=== PATIENT | male | born 1945 | race Two or more races ===

== ENCOUNTER 2024-09-26 10:55 | Day surgery (SDC) | payer MEDICARE, MEDICAID, SELFPAY ==
--- NOTE | 2024-09-26 10:31 | EKG_ITS ---
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
[2024-09-26 11:54] VITALS: BP 168/73; PULSE 54; RESP 20; TEMP 36.2; O2SAT 100
[2024-09-26 12:31] LABS: Alanine Aminotransferase 17 U/L (10-49); Albumin, Serum 4.6 gm/dL (3.4-4.8); Albumin/Globulin Ratio 1.8 (1.2-2.2); Alkaline Phosphatase 113 U/L (46-116); Anion Gap 9 (7-16); Aspartate Amino Transferase 31 U/L (0-34); BUN/Creatinine Ratio 16 Ratio (12-20); Blood Urea Nitrogen 16 mg/dL (9-23); Calcium 9.7 mg/dL (8.3-10.6); Calcium (Corrected) 9.7 mg/dL (8.5-10.1); Carbon Dioxide 25.5 mMol/L (20.0-31.0); Chloride 102 mMol/L (98-107); Estimated Creatinine Clearance 55.2 mL/min (>60); Globulin 2.5 gm/dL (2.3-3.5); Glucose 125 mg/dL (74-106); Osmolality,Calculated 274 (275-295); Potassium 4.6 mMol/L (3.4-5.1); Sodium 136 mMol/L (136-145); Total Protein 7.1 gm/dL (5.7-8.2); eGFR > 60 See Note
[2024-09-26] MEDS: RINGERS LACTATED 500 ML 500 ML 20 ML IV (12:50)
[2024-09-26 13:50] VITALS: BP 103/45; PULSE 53; PULSE 57; RESP 20; TEMP 36.4; O2SAT 99
--- NOTE | 2024-09-26 13:50 | SUR.PHASEII ---
1350: Pt. AAOx4, vitals stable, breathing unlabored, no complaint of pain or nausea, no dressing in place, no active bleed noted, report received from Qamar BROWN and Marybeth SIEGEL.
[2024-09-26 13:55] VITALS: BP 95/55; PULSE 59; RESP 20; TEMP 36.5; O2SAT 100
[2024-09-26 14:00] VITALS: BP 108/47; PULSE 55; RESP 16; TEMP 36.5; O2SAT 100
[2024-09-26 14:05] VITALS: BP 125/64; PULSE 60; RESP 15; TEMP 36.5; O2SAT 100
[2024-09-26 14:20] VITALS: BP 119/63; PULSE 60; RESP 16; TEMP 36.4; O2SAT 99
--- NOTE | 2024-09-26 14:30 | SUR.PHASEII ---
1430: Pt. AAOx4, vitals stable, breathing unlabored, no complaint of pain or nausea, no dressing in place, no active bleed noted, pt. able to pass gas, pt. tolerated sips of juice well, pt. ambulated to wheelchair with steady gait and no assist, no complications. Gave discharge instructions to the pt. and her ride, both verbalized understanding and had no further questions. Pt. left with all personal belongings.
== END 2024-09-26 14:30 | disposition home or self-care (01) ==
PROVIDERS: Anesthesiology; PCP Internal Medicine; Referring Provider Internal Medicine Gastroenterology; Visit Provider Internal Medicine Gastroenterology
PROC: 0DJD8ZZ Inspection of Lower Intestinal Tract, Via Natural or Artificial Opening Endoscopic (ICD-10-PCS; CPT 45378; principal; 2024-09-26 12:00)
PROC: (CPT 43239; 2024-09-26 12:00)
DX: K29.70 Gastritis, unspecified, without bleeding (principal); Z98.0 Intestinal bypass and anastomosis status; K44.9 Diaphragmatic hernia without obstruction or gangrene
CPT/HCPCS: 43239; 36415; 80053; 93005; A4217; A4649; J2250; J2704; J7120; A9270